=== PATIENT | female | born 1955 | race African-American/Black ===

== ENCOUNTER 2020-03-23 12:37 | Inpatient (IN) | payer MEDICARE, OTHER ==
[~2020-03-23] VITALS: Ht 162.6 cm; Wt 42.2 kg
[2020-03-23 14:20] VITALS: BP 115/74
[2020-03-23] MEDS ORDERED: MAG HYDROX/AL HYDROX/SIMETH 30 ML LIQUID UDC PO PRN (14:30)
[2020-03-23] MEDS ORDERED: LORAZEPAM 1 MG TABLET PO PRN (14:30)
[2020-03-23] MEDS ORDERED: MAGNESIUM HYDROXIDE 30 ML LIQUID UDC PO PRN (14:30)
[2020-03-23 17:17] LABS: *BILIRUBIN,URIN NEGATIVE (NEGATIVE); *BLOOD, URINE NEGATIVE (NEGATIVE); *CLARITY,URINE CLEAR (CLEAR); *COLOR,URINE YELLOW (YELLOW); *KETONES,URINE NEGATIVE (NEGATIVE); LEUKOCYTE ESTERASE ,URINE NEGATIVE (NEGATIVE); NITRITE, URINE POSITIVE (NEGATIVE); UGLUCOSE NEGATIVE (NEGATIVE)
[2020-03-23 17:40] VITALS: BP 146/64
[2020-03-23 19:56] VITALS: BP 122/53
[2020-03-23] MEDS: ARIPIPRAZOLE 5 MG TABLET PO SCH (21:16)
[2020-03-23 22:51] LABS: BACTERIA,URINE MANY /HPF (NONE SEEN); RBC,URINE 0-3 /HPF (0-3); SQUAMOUS EPITHELIAL CELL,UR FEW /HPF (NONE SEEN); WBC,URINE 0-3 /HPF (0-3)
[2020-03-23 22:52] LABS: CALCIUM OXALATE CRYSTALS,UR MODERATE /HPF (NONE SEEN); URINE AMORPHOUS URATE MANY /HPF
[2020-03-24 07:30] VITALS: BP 96/51
[2020-03-24] MEDS: SERTRALINE HCL 50 MG TABLET PO SCH (08:18)
[2020-03-24 08:54] LABS: BASOPHILS % (AUTO) 0.5 % (0.0-2.0); EOSINOPHILS # (AUTO) 0.2 K/uL (0.0-0.7); EOSINOPHILS % (AUTO) 3.8 % (0.0-7.0); HEMOGLOBIN 14.2 g/dL (10.9-14.3); LYMPHOCYTES # (AUTO) 2.3 K/uL (20.0-40.0); LYMPHOCYTES % (AUTO) 36.8 % (20.5-51.5); MEAN CORPUSCULAR HEMOGLOBIN 30.2 uug (24.7-32.8); MEAN CORPUSCULAR HGB CONC 33 g/dL (32.3-35.6); MEAN CORPUSCULAR VOLUME 91.9 fL (75.5-95.3); MONOCYTES # (AUTO) 0.5 K/uL (2.0-10.0); NEUTROPHILS # (AUTO) 3.2 K/uL (1.8-8.9); NEUTROPHILS % (AUTO) 50.9 % (38.5-71.5); PLATELET COUNT (AUTO) 141 K/uL (179-408); RED BLOOD CELL COUNT(AUTO) 4.68 MIL/uL (3.63-4.92); WHITE BLOOD COUNT (AUTO) 6.3 K/uL (3.8-11.8)
[2020-03-24 09:16] LABS: BILIRUBIN,TOTAL 0.5 mg/dL (0.2-1.0); CREATININE 0.8 mg/dL (0.6-1.3); TOTAL PROTEIN, SERUM 6.7 g/dL (6.4-8.2)
[2020-03-24 09:52] LABS: THYROID STIMULATING HORMONE 0.368 mIU/mL (0.358-3.740)
[2020-03-24 16:19] VITALS: BP 128/52
[2020-03-24] MEDS: ARIPIPRAZOLE 5 MG TABLET PO SCH (20:08)
[2020-03-24 20:55] VITALS: BP 131/69
[2020-03-25 07:30] VITALS: BP 129/67
[2020-03-25] MEDS: SERTRALINE HCL 50 MG TABLET PO SCH (08:48)
[2020-03-25 15:27] VITALS: BP 143/67
[2020-03-25 19:47] VITALS: BP 127/72
[2020-03-25] MEDS: ARIPIPRAZOLE 5 MG TABLET PO SCH (20:29)
[2020-03-26 07:30] VITALS: BP 139/77
[2020-03-26] MEDS: SERTRALINE HCL 50 MG TABLET PO SCH (08:21)
[2020-03-26] MEDS: ACETAMINOPHEN 325 MG TABLET PO PRN (08:25)
[2020-03-26 16:00] VITALS: BP 138/72
[2020-03-26 20:00] VITALS: BP 142/58
[2020-03-26] MEDS: ARIPIPRAZOLE 5 MG TABLET PO SCH (21:30)
[2020-03-27 07:30] VITALS: BP 141/83
[2020-03-27] MEDS ORDERED: LOPERAMIDE HCL 2 MG CAPSULE PO PRN (13:00)
[2020-03-27 15:07] VITALS: BP 160/94
[2020-03-27 19:58] VITALS: BP 140/82
[2020-03-27] MEDS: ARIPIPRAZOLE 5 MG TABLET PO SCH (21:11)
[2020-03-28 07:30] VITALS: BP 139/81
[2020-03-28] MEDS: ARIPIPRAZOLE 5 MG TABLET PO SCH (20:22)
[2020-03-28 20:30] VITALS: BP 130/70
[2020-03-29] MEDS: ACETAMINOPHEN 325 MG TABLET PO PRN ×2 (05:48→20:10)
[2020-03-29 07:30] VITALS: BP 141/74
[2020-03-29 16:21] VITALS: BP 124/77
[2020-03-29] MEDS: ENSURE ENLIVE (VAN) 240 ML LIQUID PO SCH (16:30)
[2020-03-29 20:02] VITALS: BP 139/77
[2020-03-29] MEDS: ARIPIPRAZOLE 5 MG TABLET PO SCH (20:10)
[2020-03-30] MEDS: TEMAZEPAM 7.5 MG CAPSULE PO PRN ×2 (01:08→21:55)
[2020-03-30 07:30] VITALS: BP 154/79
[2020-03-30] MEDS: ENSURE ENLIVE (VAN) 240 ML LIQUID PO SCH ×2 (08:10→17:13)
[2020-03-30] MEDS: ACETAMINOPHEN 325 MG TABLET PO PRN ×2 (08:45→17:49)
[2020-03-30 16:00] VITALS: BP 130/85
[2020-03-30] MEDS: ARIPIPRAZOLE 5 MG TABLET PO SCH (20:11)
[2020-03-30 20:25] VITALS: BP 139/80
[2020-03-31 07:30] VITALS: BP 134/69
[2020-03-31] MEDS: ACETAMINOPHEN 325 MG TABLET PO PRN ×2 (07:49→15:13)
[2020-03-31] MEDS: ENSURE ENLIVE (VAN) 240 ML LIQUID PO SCH ×2 (08:20→17:35)
[2020-03-31 16:10] VITALS: BP 140/81
[2020-03-31 20:00] VITALS: BP 128/84
[2020-03-31] MEDS: ARIPIPRAZOLE 5 MG TABLET PO SCH (20:16)
[2020-03-31] MEDS: TEMAZEPAM 7.5 MG CAPSULE PO PRN (21:15)
[2020-04-01] MEDS: ACETAMINOPHEN 325 MG TABLET PO PRN (05:21)
[2020-04-01 07:30] VITALS: BP 120/81
[2020-04-01] MEDS: ENSURE ENLIVE (VAN) 240 ML LIQUID PO SCH (09:27)
== END 2020-04-01 12:00 | DRG 885 ==
LOC: ER 12:37 → GPS 13:58
PROVIDERS: ADMIT Psychiatry & Neurology Psychiatry; ATTEND Nurse Practitioner Acute Care
DX: F31.5 Bipolar disorder, current episode depressed, severe, with psychotic features (principal); R45.851 Suicidal ideations; Z59.0 Homelessness; M41.9 Scoliosis, unspecified; R45.850 Homicidal ideations; Z91.14 Patient's other noncompliance with medication regimen; R00.1 Bradycardia, unspecified; R53.83 Other fatigue; Z88.0 Allergy status to penicillin; R79.89 Other specified abnormal findings of blood chemistry
CPT/HCPCS: 36415; 71045; 84443; 85025; 87086; 93005; A4663